=== PATIENT | female | born 1990 | race Caucasian/White ===

== ENCOUNTER 2016-05-08 19:34 | Inpatient (IN) | payer OTHER ==
[2016-05-08 20:34] LABS: HCT 35.7 % (37.0-47.0); HGB 12.2 g/dl (12.5-16.0); MCH 30.2 pg (25.0-31.0); MCHC 34.2 g/dL (32.0-36.0); MCV 88.4 fL (78.0-100.0); MPV 10.3 fL (6.0-9.5); RBC 4.04 M/uL (4.20-5.40); RDW 13.7 % (11.5-14.0); WBC 8.8 K/uL (4.0-10.5)
[2016-05-08 20:44] LABS: ALBUMIN 3.6 g/dL (3.5-5.0); BILIRUBIN - TOTAL 0.2 mg/dL (0.1-1.0); CREATININE 0.5 mg/dL (0.5-1.0); POTASSIUM 3.6 mmol/L (3.5-5.1); TOTAL PROTEIN 6.6 g/dL (6.4-8.3)
[2016-05-08 20:54] LABS: BILIRUBIN NEGATIVE (NEGATIVE); BLOOD NEGATIVE Ery/uL (NEGATIVE); CLARITY HAZY (CLEAR); COLOR YELLOW (YELLOW); GLUCOSE (U) NORMAL (NORMAL); KETONE (U) NEGATIVE (NEGATIVE); LEUKOCYTES 1+ Leu/uL (NEGATIVE); NITRITE NEGATIVE (NEGATIVE); PROTEIN NEGATIVE (NEGATIVE); UROBILINOGEN 0.2 mg/dL (0.2-1.0)
[2016-05-08 21:19] LABS: URINARY RBC RARE
[2016-05-08 21:20] LABS: BACTERIA 3+; CALCIUM OXALATE CRYSTALS TRACE; SQUAMOUS EPITHELIAL CELLS >50; TRANSITIONAL EPITHELIAL CELLS RARE
[2016-05-09 08:28] LABS: BILIRUBIN NEGATIVE (NEGATIVE); BLOOD TRACE-INTACT Ery/uL (NEGATIVE); CLARITY CLEAR (CLEAR); COLOR STRAW (YELLOW); GLUCOSE (U) NORMAL (NORMAL); KETONE (U) TRACE mg/dL (NEGATIVE); LEUKOCYTES NEGATIVE Leu/uL (NEGATIVE); NITRITE NEGATIVE (NEGATIVE); PROTEIN NEGATIVE (NEGATIVE); SPECIFIC GRAVITY 1.015 (1.001-1.030); UROBILINOGEN 0.2 mg/dL (0.2-1.0)
[2016-05-09 08:32] LABS: SQUAMOUS EPITHELIAL CELLS RARE
[2016-05-10 05:26] LABS: HCT 28.9 % (37.0-47.0); HGB 9.6 g/dl (12.5-16.0); MCH 30.2 pg (25.0-31.0); MCHC 33.2 g/dL (32.0-36.0); MCV 90.9 fL (78.0-100.0); MPV 9.5 fL (6.0-9.5); RBC 3.18 M/uL (4.20-5.40); RDW 13.8 % (11.5-14.0)
== END 2016-05-11 17:07 | disposition home or self-care (01) | DRG 765 ==
LOC: FOD 19:34 → FOB 19:35 → FOD 21:30 → FOB 21:31
PROVIDERS: ADMIT Obstetrics & Gynecology
PROC: 4A1HX4Z Monitoring of Products of Conception, Cardiac Electrical Activity, External Approach (ICD-10-PCS; 2016-05-08)
PROC: 10D00Z1 Extraction of Products of Conception, Low, Open Approach (ICD-10-PCS; principal; 2016-05-09 08:00)
DX: O13.4 Gestational [pregnancy-induced] hypertension without significant proteinuria, complicating childbirth (principal); D62 Acute posthemorrhagic anemia; F41.9 Anxiety disorder, unspecified; Z3A.38 38 weeks gestation of pregnancy; Z37.0 Single live birth; O32.1XX0 Maternal care for breech presentation, not applicable or unspecified; O99.02 Anemia complicating childbirth
CPT/HCPCS: 36415; 80053; 81001; 83615; 88307; J0690; J1100; J1885; J2274; J2300; J2310; J2405; J3010